=== PATIENT | female | born 2000 | race Caucasian/White ===

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

== ENCOUNTER 2020-04-28 12:36 | Emergency (ER) | payer OTHER ==
[~2020-04-28] VITALS: Ht 175.3 cm; Wt 98.9 kg
[2020-04-28 13:49] LABS: BASO % 0 % (0-3); EOS % 0 % (0-3); HEMATOCRIT 41.5 % (36.0-47.0); HEMOGLOBIN 14.9 g/dL (12.0-15.5); LYMPH # 2.3 x10^3/uL (1.0-4.8); LYMPH % 31 % (24-48); MEAN CORPUSCULAR HEMOGLOBIN 32 pg (25-35); MEAN CORPUSCULAR HGB CONC 36 g/dL (31-37); MEAN CORPUSCULAR VOLUME 88 fL (79-100); MONO # 0.5 x10^3/uL (0.0-1.1); MONO % 7 % (0-9); NEUT # 4.5 x10^3/uL (1.8-7.7); NEUT % 61 % (31-73); PLATELET COUNT 235 x10^3/uL (140-400); RED BLOOD COUNT 4.71 x10^6/uL (3.50-5.40); RED CELL DISTRIBUTION WIDTH 12.5 % (11.5-14.5); WHITE BLOOD COUNT 7.4 x10^3/uL (4.0-11.0)
[2020-04-28 13:51] LABS: BILIRUBIN,URINE NEGATIVE (NEG); CLARITY,URINE CLEAR; COLOR,URINE YELLOW; NITRITE,URINE NEGATIVE (NEG); PROTEIN,URINE NEGATIVE (NEG-TRACE); UROBILINOGEN,URINE 0.2 mg/dL (0.2 mg/dL)
[2020-04-28 13:56] LABS: BARBITURATES NEG (NEG); BENZODIAZEPINES NEG (NEG); CANNABINOIDS POS (NEG); COCAINE NEG (NEG); METHADONE NEG (NEG); OPIATES NEG (NEG); PHENCYCLIDINE NEG (NEG)
[2020-04-28 14:04] LABS: AMPHETAMINE/METHAMPHETAMINE POS (NEG); BACTERIA,URINE MANY /HPF (0-FEW)
[2020-04-28 14:05] LABS: RBC,URINE 0 /HPF (0-2); WBC,URINE OCC /HPF (0-4)
[2020-04-28 14:09] LABS: CALCIUM 9.2 mg/dL (8.5-10.1); CREATININE 0.9 mg/dL (0.6-1.0); POTASSIUM 4.3 mmol/L (3.5-5.1)
[2020-04-28 14:16] LABS: ALBUMIN 3.9 g/dL (3.4-5.0); ALBUMIN/GLOBULIN RATIO 1.3 (1.0-1.7); TOTAL BILIRUBIN 0.3 mg/dL (0.2-1.0); TOTAL PROTEIN 6.9 g/dL (6.4-8.2)
--- NOTE | 2020-04-28 15:03 | ED.ADGEN ---
Past Medical History Past Medical History: Anxiety, Bipolar Additional Past Medical Histor: PTSD Past Surgical History: Tonsillectomy, Other Additional Past Surgical Histo: [place] teeth Smoking Status: Current Every Day Smoker Additional Information: 12ppd Alcohol Use: Occasionally Drug Use: Amphetamine, Marijuana, Other Social History Narrative: report recent meth relapse General Adult EDM: Chief Complaint: SEIZURE HPI: HPI: Patient is a 19-year-old female who presents to the emergency room complaining of a possible seizure. According to witnesses patient started foaming from the mouth and then fell to the ground shaking. They state this lasted about 5 minutes. She has had 2 other episodes like this over the last 6 months. She was seen at [facility] for this but has not seen a neurologist. She had a CT head done that was normal the last time she had a seizure. She not have any head injury at this time. She did not lose control of bowel or bladder. She did not bite her tongue. She is not complaining of any kind of pain. Patient states she does not remember the episode. They state that she was sleepy afterwards but otherwise normal. Review of Systems: Review of Systems: Complete ROS is negative unless otherwise documented in HPI Allergies: Allergies: Allergies Coded Allergies Type Severity Reaction Last Updated Verified No Known Drug Allergies 04/28/20 No Physical Exam: PE: General: Awake, alert, NAD. Well Nourished, well hydrated. Cooperative HEENT: Atraumatic, EOMI, PERRL, airway patent, moist oral mucosa Neck: Supple, trachea midline Respiratory: CTA bilaterally, normal effort, no wheezing/crackles CV: RRR, no murmur, cap refill <2 GI: Soft, nondistended, nontender, no masses MSK: No obvious deformities Skin: Warm, dry, intact Neuro: A&O x3, speech NL, 5/5 strength in BUE/BLE distally and proximally, CN 2- 12 intact, cerebellar testing normal Psych: Normal affect, normal mood, not suicidal or homicidal Current Patient Data: Labs: Laboratory Tests Test 04/28/20 12:53 04/28/20 13:06 04/28/20 13:19 Urine Collection Type Unknown Urine Color Yellow Urine Clarity Clear Urine pH 6.0 (<5.0-8.0) Urine Specific [place] 1.020 (1.000-1.030) Urine Protein Negative mg/dL (NEG-TRACE) Urine Glucose (UA) Negative mg/dL (NEG) Urine Ketones (Stick) Negative mg/dL (NEG) Urine Blood Negative (NEG) Urine Nitrite Negative (NEG) Urine Bilirubin Negative (NEG) Urine Urobilinogen Dipstick 0.2 mg/dL (0.2 mg/dL) Urine Leukocyte Esterase Negative (NEG) Urine RBC 0 /HPF (0-2) Urine WBC Occ /HPF (0-4) Urine Squamous Epithelial Cells Mod /LPF Urine Bacteria Many /HPF (0-FEW) Urine Mucus Marked /LPF Urine Opiates Screen Neg (NEG) Urine Methadone Screen Neg (NEG) Urine Barbiturates Neg (NEG) Urine Phencyclidine Screen Neg (NEG) Urine Amphetamine/Methamphetamine Pos (NEG) Urine Benzodiazepines Screen Neg (NEG) Urine Cocaine Screen Neg (NEG) Urine Cannabinoids Screen Pos (NEG) Urine Ethyl Alcohol Neg (NEG) White Blood Count 7.4 x10^3/uL (4.0-11.0) Red Blood Count 4.71 x10^6/uL (3.50-5.40) Hemoglobin 14.9 g/dL (12.0-15.5) Hematocrit 41.5 % (36.0-47.0) Mean Corpuscular Volume 88 fL (79-100) Mean Corpuscular Hemoglobin 32 pg (25-35) Mean Corpuscular Hemoglobin Concent 36 g/dL (31-37) Red Cell Distribution Width 12.5 % (11.5-14.5) Platelet Count 235 x10^3/uL (140-400) Neutrophils (%) (Auto) 61 % (31-73) Lymphocytes (%) (Auto) 31 % (24-48) Monocytes (%) (Auto) 7 % (0-9) Eosinophils (%) (Auto) 0 % (0-3) Basophils (%) (Auto) 0 % (0-3) Neutrophils # (Auto) 4.5 x10^3/uL (1.8-7.7) Lymphocytes # (Auto) 2.3 x10^3/uL (1.0-4.8) Monocytes # (Auto) 0.5 x10^3/uL (0.0-1.1) Eosinophils # (Auto) 0.0 x10^3/uL (0.0-0.7) Basophils # (Auto) 0.0 x10^3/uL (0.0-0.2) Sodium Level 140 mmol/L (136-145) Potassium Level 4.3 mmol/L (3.5-5.1) Chloride Level 104 mmol/L (98-107) Carbon Dioxide Level 24 mmol/L (21-32) Anion Gap 12 (6-14) Blood Urea Nitrogen 8 mg/dL (7-20) Creatinine 0.9 mg/dL (0.6-1.0) Estimated GFR (Cockcroft-Gault) 79.0 BUN/Creatinine Ratio 9 (6-20) Glucose Level 89 mg/dL (70-99) Calcium Level 9.2 mg/dL (8.5-10.1) Total Bilirubin 0.3 mg/dL (0.2-1.0) Aspartate Amino Transferase (AST) 17 U/L (15-37) Alanine Aminotransferase (ALT) 28 U/L (14-59) Alkaline Phosphatase 65 U/L (46-116) Total Protein 6.9 g/dL (6.4-8.2) Albumin 3.9 g/dL (3.4-5.0) Albumin/Globulin Ratio 1.3 (1.0-1.7) POC Urine HCG, Qualitative Hcg negative (Negative) Laboratory Tests 04/28/20 13:06 Laboratory Tests 04/28/20 13:06 Vital Signs: Vital Signs Date Time Temp Pulse Resp B/P (MAP) Pulse Ox O2 Delivery O2 Flow Rate FiO2 04/28/20 15:28 98.3 72 23 98 98.3 04/28/20 12:38 108/66 (80) Room Air EKG: EKG: [] Heart Score: Risk Factors: Risk Factors: DM, Current or recent (<one month) smoker, HTN, HLP, family history of CAD, obesity. Risk Scores: Score 0 - 3: 2.5% MACE over next 6 weeks - Discharge Home Score 4 - 6: 20.3% MACE over next 6 weeks - Admit for Clinical Observation Score 7 - 10: 72.7% MACE over next 6 weeks - Early Invasive Strategies Radiology/Procedures: Radiology/Procedures: [] Course & Med Decision Making: Course & Med Decision Making Pertinent Labs and Imaging studies reviewed. (See chart for details) Patient is 19-year-old female who presents to the emergency room after having a possible seizure. Patient has had 2 other episodes like this and has not been started on medications. Of note she was supposed to be in court today and they are asking for a note to excuse her from court due to her seizure. Patient does need to see a neurologist. Did discuss the case with the neurologist that is covered by patient's insurance at [facility] and they recommend starting her on seizure medications and they will see her in clinic to evaluate further. Lab work does not show any secondary causes of seizures. Patient's test results and vitals while in the ED were fully reviewed and discussed with the patient. Patient is stable and at this time does not need admission to the hospital. We have discussed strict return precautions and the importance of following up with their Primary Care Physician. Patient stated understanding and was given an opportunity to ask any questions. Patient is in agreement with plan. Jeffrey Disclaimer: Jeffrey Disclaimer: This electronic medical record was generated, in whole or in part, using a voice recognition dictation system. Departure Departure Impression: Primary Impression: Seizure Disposition: 01 DC HOME SELF CARE/HOMELESS Condition: STABLE Referrals: NO PCP (PCP) Patient Instructions: Seizure, Adult Scripts Levetiracetam (KEPPRA) 500 Mg Tablet 1 TAB PO BID for 30 Days, #60 TAB 2 Refills Prov: DEAY GILL MD 04/28/20 DEYA GILL MD Apr 28, 2020 15:03
[2020-04-28] MEDS ORDERED: LEVE500T56 PO (15:21)
[2020-04-28 15:28] VITALS: BP 106/58
== END 2020-04-28 15:35 | disposition home or self-care (01) ==
LOC: ER 12:36
DX: R56.9 Unspecified convulsions (principal); F31.9 Bipolar disorder, unspecified; F41.9 Anxiety disorder, unspecified; F43.10 Post-traumatic stress disorder, unspecified; F17.200 Nicotine dependence, unspecified, uncomplicated
CPT/HCPCS: 36415; 80053; 80307; 81001; 81025; 85025; 99285-25

== ENCOUNTER 2020-12-20 11:42 | Emergency (ER) | payer OTHER ==
[~2020-12-20 11:42] MED LIST changes: +LEVE500T56 PO
== END 2020-12-20 13:23 | disposition left against medical advice (07) ==
LOC: ER 11:42
DX: Z20.822 Contact with and (suspected) exposure to COVID-19 (principal); Z53.21 Procedure and treatment not carried out due to patient leaving prior to being seen by health care provider

== ENCOUNTER 2020-12-28 02:14 | Observation (INO) | payer OTHER ==
[~2020-12-28] VITALS: Ht 175.3 cm; Wt 69.1 kg
--- NOTE | 2020-12-28 02:52 | PHYS DOC ---
Past Medical History Past Medical History: Anxiety, Bipolar Additional Past Medical Histor: PTSD Past Surgical History: Tonsillectomy, Other Additional Past Surgical Histo: [place] teeth Smoking Status: Current Every Day Smoker Alcohol Use: Occasionally Drug Use: Amphetamine, Marijuana, Other General Adult EDM: Chief Complaint: NECK PAIN HPI: HPI: Patient is a 20 year old female presents with the chief complaint of left sided neck pain and lump. Patient unable to provided much history. She staates she was seen at [facility]-- on the or . She states she was told she needs to have surgery. Patient states she was scared so she left. She states she was Rx Antibiotics but lump has not improved. Medical records obtained from [place]. Patient was admitted to the hospital on 12/21. She was started on Unasyn. Patient had fine-needle aspiration was performed and purulent fluid was aspirated. Culture grew strep pyogenes and many staph specimens. Pathology was negative for malignancy. ENT did not plan and I and D and recommend oral antibiotics. Patient subsequently left [facility] on . CT imaging at [place] shows haziness throughout the fat of the left lower neck with several round peripheral enhancing structures deep to the sternocleidomastoid largest measuring 2.0 x 1.5 cm. Review of Systems: Review of Systems: Constitutional: Denies fever or chills. [] Eyes: Denies change in visual acuity. [] HENT: Denies nasal congestion or sore throat. [] Respiratory: Denies cough or shortness of breath. [] Cardiovascular: Denies chest pain or edema. [] GI: Denies abdominal pain, nausea, vomiting, bloody stools or diarrhea. [] : Denies dysuria. [] Musculoskeletal: Denies back pain or joint pain. [Positive neck pain] Integument: Denies rash. [Positive abscess] Neurologic: Denies headache, focal weakness or sensory changes. [] Endocrine: Denies polyuria or polydipsia. [] Lymphatic: Denies swollen glands. [] Psychiatric: Denies depression or anxiety. [] Heart Score: C/O Chest Pain: N/A Risk Factors: Risk Factors: DM, Current or recent (<one month) smoker, HTN, HLP, family history of CAD, obesity. Risk Scores: Score 0 - 3: 2.5% MACE over next 6 weeks - Discharge Home Score 4 - 6: 20.3% MACE over next 6 weeks - Admit for Clinical Observation Score 7 - 10: 72.7% MACE over next 6 weeks - Early Invasive Strategies Allergies: Allergies: Allergies Coded Allergies Type Severity Reaction Last Updated Verified No Known Drug Allergies 04/28/20 No Physical Exam: PE: Constitutional: Well developed, well nourished, no acute distress, non-toxic appearance. [] HENT: Normocephalic, atraumatic, bilateral external ears normal, oropharynx moist, no oral exudates, nose normal. [] Eyes: PERRLA, EOMI, conjunctiva normal, no discharge. [] Neck: Normal range of motion, no tenderness, supple, no stridor. [Palpable mass left sternocleidomastoid] Cardiovascular:Heart rate regular rhythm, no murmur [] Lungs & Thorax: Bilateral breath sounds clear to auscultation [] Abdomen: Bowel sounds normal, soft, no tenderness, no masses, no pulsatile masses. [] Skin: Warm, dry, no erythema, no rash. [] Back: No tenderness, no CVA tenderness. [] Extremities: No tenderness, no cyanosis, no clubbing, ROM intact, no edema. [] Neurologic: Alert and oriented X 3, normal motor function, normal sensory function, no focal deficits noted. [] Psychologic: Affect normal, judgement normal, mood normal. [] EKG: EKG: [] Radiology/Procedures: Radiology/Procedures: [] Course & Med Decision Making: Course & Med Decision Making Pertinent Labs and Imaging studies reviewed. (See chart for details) [] Medical records obtained from [facility]. Patient with abscess left sternocleidomastoid. Patient was initially on Unasyn but left the hospital AMA. She did receive a prescription of Augmentin which patient states she has been taking. Patient states lump is still present not getting any better. Will admit the patient for IV antibiotics. Started on unasyn. Jeffrey Disclaimer: Jeffrey Disclaimer: This electronic medical record was generated, in whole or in part, using a voice recognition dictation system. Departure Departure Impression: Primary Impression: Neck pain Additional Impression: Abscess Disposition: ADMITTED INPATIENT Admitting Physician: KATIA Referrals: NO PCP (PCP) ANDRIY ROMERO DO Dec 28, 2020 02:51
[2020-12-28] MEDS ORDERED: AMPICILLIN/SULBACTAM 3 GM in IV NORMAL SALINE 100ML 100 ML IV ONE (05:45)
[2020-12-28] MEDS ORDERED: ACETAMINOPHEN 325 MG TABLET. PO PRN ×2 (05:45→10:00)
[2020-12-28 05:46] LABS: BASO % 0 % (0-3); EOS # 0.1 x10^3/uL (0.0-0.7); EOS % 1 % (0-3); HEMATOCRIT 38.7 % (36.0-47.0); HEMOGLOBIN 13.3 g/dL (12.0-15.5); LYMPH # 4.9 x10^3/uL (1.0-4.8); LYMPH % 41 % (24-48); MEAN CORPUSCULAR HEMOGLOBIN 28 pg (25-35); MEAN CORPUSCULAR HGB CONC 34 g/dL (31-37); MEAN CORPUSCULAR VOLUME 81 fL (79-100); MONO # 0.7 x10^3/uL (0.0-1.1); MONO % 6 % (0-9); NEUT # 6.3 x10^3/uL (1.8-7.7); NEUT % 52 % (31-73); PLATELET COUNT 427 x10^3/uL (140-400); RED BLOOD COUNT 4.78 x10^6/uL (3.50-5.40); RED CELL DISTRIBUTION WIDTH 14.7 % (11.5-14.5); WHITE BLOOD COUNT 12.2 x10^3/uL (4.0-11.0)
[2020-12-28 05:52] LABS: CALCIUM 9.1 mg/dL (8.5-10.1); CREATININE 0.9 mg/dL (0.6-1.0); GFR 78.3
[2020-12-28 05:57] LABS: ALBUMIN 2.9 g/dL (3.4-5.0); ALBUMIN/GLOBULIN RATIO 0.6 (1.0-1.7); TOTAL BILIRUBIN 0.2 mg/dL (0.2-1.0); TOTAL PROTEIN 7.9 g/dL (6.4-8.2)
[2020-12-28] MEDS ORDERED: IOHEXOL 300 MG/ML 100ML VIAL. IV ONE (06:00)
[2020-12-28] MEDS ORDERED: CONTRAST GIVEN. MC PRN (06:00)
[2020-12-28] MEDS ORDERED: ELECTROLYTE (NON-ICU) PROTOCOL. MC PRN (10:00)
[2020-12-28] MEDS ORDERED: CALCIUM CARBONATE 500 MG TAB.CHEW PO PRN (10:00)
[2020-12-28] MEDS ORDERED: ONDANSETRON PF 4 MG/2 ML VIAL. IVP PRN (10:00)
[2020-12-28] MEDS ORDERED: ZOLPIDEM 5 MG TABLET. PO PRN (10:00)
[2020-12-28] MEDS: levETIRAcetam 500 MG TABLET PO SCH ×2 (10:47→20:10)
[2020-12-28] MEDS: SENNOSIDES/DOCUSATE 8.6/50MG TABLET. PO SCH ×2 (10:47→20:11)
[2020-12-28] MEDS: QUEtiapine 100 MG TABLET. PO SCH (10:47)
--- NOTE | 2020-12-28 11:15 | PDOC ---
Infectious Disease Note Vital Signs: Vital Signs Vital Signs Date Time Temp Pulse Resp B/P (MAP) Pulse Ox O2 Delivery O2 Flow Rate FiO2 12/28/20 07:07 98 112/65 (81) 100 Room Air 12/28/20 06:37 20 12/28/20 02:30 98.6 98.6 Medications: Inpatient Meds: Medications reviewed. Labs: Lab Laboratory Tests Test 12/28/20 02:45 12/28/20 05:35 Bedside Urine HCG, Qualitative Hcg negative (Negative) White Blood Count 12.2 x10^3/uL (4.0-11.0) Red Blood Count 4.78 x10^6/uL (3.50-5.40) Hemoglobin 13.3 g/dL (12.0-15.5) Hematocrit 38.7 % (36.0-47.0) Mean Corpuscular Volume 81 fL (79-100) Mean Corpuscular Hemoglobin 28 pg (25-35) Mean Corpuscular Hemoglobin Concent 34 g/dL (31-37) Red Cell Distribution Width 14.7 % (11.5-14.5) Platelet Count 427 x10^3/uL (140-400) Neutrophils (%) (Auto) 52 % (31-73) Lymphocytes (%) (Auto) 41 % (24-48) Monocytes (%) (Auto) 6 % (0-9) Eosinophils (%) (Auto) 1 % (0-3) Basophils (%) (Auto) 0 % (0-3) Neutrophils # (Auto) 6.3 x10^3/uL (1.8-7.7) Lymphocytes # (Auto) 4.9 x10^3/uL (1.0-4.8) Monocytes # (Auto) 0.7 x10^3/uL (0.0-1.1) Eosinophils # (Auto) 0.1 x10^3/uL (0.0-0.7) Basophils # (Auto) 0.0 x10^3/uL (0.0-0.2) Sodium Level 137 mmol/L (136-145) Potassium Level 4.0 mmol/L (3.5-5.1) Chloride Level 102 mmol/L (98-107) Carbon Dioxide Level 30 mmol/L (21-32) Anion Gap 5 (6-14) Blood Urea Nitrogen 11 mg/dL (7-20) Creatinine 0.9 mg/dL (0.6-1.0) Estimated GFR (Cockcroft-Gault) 78.3 BUN/Creatinine Ratio 12 (6-20) Glucose Level 81 mg/dL (70-99) Calcium Level 9.1 mg/dL (8.5-10.1) Total Bilirubin 0.2 mg/dL (0.2-1.0) Aspartate Amino Transf (AST/SGOT) 16 U/L (15-37) Alanine Aminotransferase (ALT/SGPT) 43 U/L (14-59) Alkaline Phosphatase 87 U/L (46-116) Total Protein 7.9 g/dL (6.4-8.2) Albumin 2.9 g/dL (3.4-5.0) Albumin/Globulin Ratio 0.6 (1.0-1.7) Objective: Assessment: pt seen and examined in ED ID CONSULT DICTATED THANK YOU [id number] Plan: Plan of Care thank you NEGRO DAVIS MD Dec 28, 2020 11:15
--- NOTE | 2020-12-28 12:18 | PDOC1 ---
History and Physical Date of Service: DOS: DATE: 12/28/20 TIME: 12:07 Chief Complaint: Problems: (1) Neck pain (2) Abscess Chief Complain: neck pain History of Present Illness: HPI: Patient is a 20-year-old white female presented the emergency room overnight due to left-sided neck pain and a bump. Patient reports about 2 weeks ago she noticed she was developing a lump on the back of her neck. Initially she did not think much of it but when it continued to grow she went to an outside facility. This was about a week ago she was told at that time she was started on IV antibiotics (Unasyn) and the lump was aspirated with very purulent material. She was then recommended for surgery but she was made very nervous by this and left [facility]. She was given a prescription for oral antibiotics, I believe Augmentin, which she has been taking. Despite this lump continued to worsen and she presented back to the emergency room here. Emergency room labs remarkable for leukocytosis. CT neck read still pending. When I saw her she was overall pretty lethargic and in obvious amount of pain. She was denying headache, dizziness, vision changes, shortness breath, chest pain abdominal pain. Past Medical/Surgical History: PMH/PSH: Anxiety, bipolar, Allergies: Allergies: Coded Allergies: No Known Drug Allergies (Unverified , 04/28/20) Family History: Family History: Noncontributory Social History: Social History: Daily smoker. Occasional alcohol use. Uses amphetamine and marijuana recreationally Denies any history of IV drug use including injecting into her neck Current Medications: Current Medications Current Medications Ampicillin Sodium/ Sulbactam Sodium 3 gm/Sodium Chloride 100 ml @ 200 mls/hr 1X ONCE IV Last administered on 12/28/20at 05:59; Start 12/28/20 at 05:45; Stop 12/28/20 at 06:14; Status DC Acetaminophen (Tylenol) 650 mg PRN Q4HRS PRN PO FEVER > 100.3'F Last administered on 12/28/20at 05:55; Start 12/28/20 at 05:45; Stop 12/28/20 at 10:13; Status DC Iohexol (Omnipaque 300 Mg/ml) 70 ml 1X ONCE IV Last administered on 12/28/20at 06:06; Start 12/28/20 at 06:00; Stop 12/28/20 at 06:01; Status DC Info (CONTRAST GIVEN -- Rx MONITORING) 1 each PRN DAILY PRN MC SEE COMMENTS; S tart 12/28/20 at 06:00; Stop 12/30/20 at 05:59 Levetiracetam (Keppra) 500 mg BID PO Last administered on 12/28/20at 10:47; Start 12/28/20 at 10:00 Quetiapine Fumarate (SEROquel) 100 mg DAILY PO Last administered on 12/28/20at 10:47; Start 12/28/20 at 11:00 Ondansetron HCl (Zofran) 4 mg PRN Q6HRS PRN IVP NAUSEA/VOMITING; Start 12/28/20 at 10:00 Calcium Carbonate/ Glycine (Tums) 500 mg PRN Q3HRS PRN PO UPSET STOMACH; Start 12/28/20 at 10:00 Zolpidem Tartrate (Ambien) 5 mg PRN QHS PRN PO INSOMNIA, MAY REPEAT IN 1HR; Start 12/28/20 at 10:00 Info (Non-Icu Electrolyte Protocol) 1 ea PRN DAILY PRN MC SEE COMMENTS; Start 12/28/20 at 10:00 Oxycodone/ Acetaminophen (Percocet 5/325) 2 tab PRN Q4HRS PRN PO MODERATE PAIN, SEVERE PAIN; Start 12/28/20 at 10:00 Acetaminophen (Tylenol) 650 mg PRN Q6HRS PRN PO Headaches, Temp > 101.5F; Start 12/28/20 at 10:00 Senna/Docusate Sodium (Senna Plus) 1 tab BID PO Last administered on 12/28/20at 10:47; Start 12/28/20 at 11:00 Heparin Sodium (Porcine) (Heparin Sodium) 5,000 unit Q8HRS SQ ; Start 12/28/20 at 14:00 Ampicillin Sodium/ Sulbactam Sodium 3 gm/Sodium Chloride 100 ml @ 200 mls/hr Q6HRS IV ; Start 12/28/20 at 12:00 Active Scripts Active Keppra (Levetiracetam) 500 Mg Tablet 1 Tab PO BID 30 Days Reported Seroquel (Quetiapine Fumarate) 100 Mg Tablet 100 Mg PO ROS: Review of Systems Review of System Negative unless noted in HPI Physical Exam: Vital Signs: Vital Signs Date Time Temp Pulse Resp B/P (MAP) Pulse Ox O2 Delivery O2 Flow Rate FiO2 12/28/20 11:07 88 101/65 (77) 100 Room Air 12/28/20 06:37 20 12/28/20 02:30 98.6 98.6 Physcial Exam: GEN: No apparent distress. Alert and oriented HEENT: Normal cephalic, atraumatic, external auditory canals are patent EYES: Extraocular muscles are intact, pupil are equally round and reactive to light and accommodation MUSCULOSKELETAL: Well developed , well nourished, good range of motion ENDOCRINE: No thyromegaly was palpated LYMPHATICS: No cervical chain or axillary nodes were noted HEMATOPOIETIC: No bruising NECK: Palpable mobile mass that is tender and around the left SCM LUNGS: Clear to auscultation in all lung ribera without rhonchi or wheezing HEART: RRR, S1, S2 present. Peripheral pulses intact, no obvious murmurs noted ABDOMEN: Soft, nontender. Positive bowel sounds, no organomegaly, normal bowel sounds EXTREMITIES: Without clubbing, cyanosis, or edema. Pedal pulses intact. Negative Homans sign NEUROLOGIC: Normal speech and tone. A&O x 3, moves all extremities, no obvious focal deficits PSYCHIATRIC: Normal affect, normal mood. Stable SKIN: No ulcerations or rashes, good skin turgor, no jaundice VASCULAR: Good capillary refill, neurovascular bundle appears to be intact Labs: Labs: Laboratory Tests Test 12/28/20 02:45 12/28/20 05:35 Bedside Urine HCG, Qualitative Hcg negative (Negative) White Blood Count 12.2 x10^3/uL (4.0-11.0) Red Blood Count 4.78 x10^6/uL (3.50-5.40) Hemoglobin 13.3 g/dL (12.0-15.5) Hematocrit 38.7 % (36.0-47.0) Mean Corpuscular Volume 81 fL (79-100) Mean Corpuscular Hemoglobin 28 pg (25-35) Mean Corpuscular Hemoglobin Concent 34 g/dL (31-37) Red Cell Distribution Width 14.7 % (11.5-14.5) Platelet Count 427 x10^3/uL (140-400) Neutrophils (%) (Auto) 52 % (31-73) Lymphocytes (%) (Auto) 41 % (24-48) Monocytes (%) (Auto) 6 % (0-9) Eosinophils (%) (Auto) 1 % (0-3) Basophils (%) (Auto) 0 % (0-3) Neutrophils # (Auto) 6.3 x10^3/uL (1.8-7.7) Lymphocytes # (Auto) 4.9 x10^3/uL (1.0-4.8) Monocytes # (Auto) 0.7 x10^3/uL (0.0-1.1) Eosinophils # (Auto) 0.1 x10^3/uL (0.0-0.7) Basophils # (Auto) 0.0 x10^3/uL (0.0-0.2) Sodium Level 137 mmol/L (136-145) Potassium Level 4.0 mmol/L (3.5-5.1) Chloride Level 102 mmol/L (98-107) Carbon Dioxide Level 30 mmol/L (21-32) Anion Gap 5 (6-14) Blood Urea Nitrogen 11 mg/dL (7-20) Creatinine 0.9 mg/dL (0.6-1.0) Estimated GFR (Cockcroft-Gault) 78.3 BUN/Creatinine Ratio 12 (6-20) Glucose Level 81 mg/dL (70-99) Calcium Level 9.1 mg/dL (8.5-10.1) Total Bilirubin 0.2 mg/dL (0.2-1.0) Aspartate Amino Transf (AST/SGOT) 16 U/L (15-37) Alanine Aminotransferase (ALT/SGPT) 43 U/L (14-59) Alkaline Phosphatase 87 U/L (46-116) Total Protein 7.9 g/dL (6.4-8.2) Albumin 2.9 g/dL (3.4-5.0) Albumin/Globulin Ratio 0.6 (1.0-1.7) Laboratory Tests Test 12/28/20 02:45 12/28/20 05:35 Bedside Urine HCG, Qualitative Hcg negative (Negative) White Blood Count 12.2 x10^3/uL (4.0-11.0) Red Blood Count 4.78 x10^6/uL (3.50-5.40) Hemoglobin 13.3 g/dL (12.0-15.5) Hematocrit 38.7 % (36.0-47.0) Mean Corpuscular Volume 81 fL (79-100) Mean Corpuscular Hemoglobin 28 pg (25-35) Mean Corpuscular Hemoglobin Concent 34 g/dL (31-37) Red Cell Distribution Width 14.7 % (11.5-14.5) Platelet Count 427 x10^3/uL (140-400) Neutrophils (%) (Auto) 52 % (31-73) Lymphocytes (%) (Auto) 41 % (24-48) Monocytes (%) (Auto) 6 % (0-9) Eosinophils (%) (Auto) 1 % (0-3) Basophils (%) (Auto) 0 % (0-3) Neutrophils # (Auto) 6.3 x10^3/uL (1.8-7.7) Lymphocytes # (Auto) 4.9 x10^3/uL (1.0-4.8) Monocytes # (Auto) 0.7 x10^3/uL (0.0-1.1) Eosinophils # (Auto) 0.1 x10^3/uL (0.0-0.7) Basophils # (Auto) 0.0 x10^3/uL (0.0-0.2) Sodium Level 137 mmol/L (136-145) Potassium Level 4.0 mmol/L (3.5-5.1) Chloride Level 102 mmol/L (98-107) Carbon Dioxide Level 30 mmol/L (21-32) Anion Gap 5 (6-14) Blood Urea Nitrogen 11 mg/dL (7-20) Creatinine 0.9 mg/dL (0.6-1.0) Estimated GFR (Cockcroft-Gault) 78.3 BUN/Creatinine Ratio 12 (6-20) Glucose Level 81 mg/dL (70-99) Calcium Level 9.1 mg/dL (8.5-10.1) Total Bilirubin 0.2 mg/dL (0.2-1.0) Aspartate Amino Transf (AST/SGOT) 16 U/L (15-37) Alanine Aminotransferase (ALT/SGPT) 43 U/L (14-59) Alkaline Phosphatase 87 U/L (46-116) Total Protein 7.9 g/dL (6.4-8.2) Albumin 2.9 g/dL (3.4-5.0) Albumin/Globulin Ratio 0.6 (1.0-1.7) Assessment/Plan Assessment/Plan Neck abscess, anxiety, bipolar, seizure disorder -Patient presenting with a 2-week history of worsening neck mass -Initially seen at outside hospital where mass was drained and patient treated with antibiotic -Left that hospital AMA has been taking p.o. Augmentin but neck mass worsening -In emergency room patient found to have leukocytosis. She was started on Unasyn. Will consult infectious disease -CT soft neck read pending. Will consult surgery to see if intervention is required -Home meds resumed as indicated -Pain control -DVT prophylaxis -Regular diet Justifications for Admission Other Justification RAVEN IBARRA MD Dec 28, 2020 12:17
[2020-12-28] MEDS: AMPICILLIN/SULBACTAM 3 GM in IV NORMAL SALINE 100ML 100 ML IV SCH ×3 (12:34→23:42)
--- NOTE | 2020-12-28 12:54 | PDOC2 ---
CONSULT Date of Consult Date of Consult DATE: 12/28/20 TIME: 12:44 Reason for Consult Reason for Consult: neck mass Referring Physician Referring Physician: Dr Garrison Identification/Chief Complaint Chief Complaint neck swelling Source Source: Chart review, Patient History of Present Illness Reason for Visit: [place]. Patient was admitted to the hospital on 12/21. She was started on Unasyn. Patient had fine-needle aspiration was performed and purulent fluid was aspirated. Culture grew strep pyogenes and many staph specimens. Pathology was negative for malignancy. ENT did not plan and I and D and recommend oral antibiotics. Patient subsequently left AMA on . Reports was nervous when they talked about surgery and left AMA Past Medical History Psych: Anxiety, Bipolar Past Surgical History Past Surgical History: No pertinent history Family History Family History: Family History Unknown Social History 1 pack per day ALCOHOL: occassional Drugs: Marijuana, Crystal meth Lives: with Family Current Problem List Problem List Problems Medical Problems: (1) Abscess Status: Acute (2) Neck pain Status: Acute Current Medications Current Medications Current Medications Ampicillin Sodium/ Sulbactam Sodium 3 gm/Sodium Chloride 100 ml @ 200 mls/hr 1X ONCE IV Last administered on 12/28/20at 05:59; Start 12/28/20 at 05:45; Stop 12/28/20 at 06:14; Status DC Acetaminophen (Tylenol) 650 mg PRN Q4HRS PRN PO FEVER > 100.3'F Last admini stered on 12/28/20at 05:55; Start 12/28/20 at 05:45; Stop 12/28/20 at 10:13; Status DC Iohexol (Omnipaque 300 Mg/ml) 70 ml 1X ONCE IV Last administered on 12/28/20at 06:06; Start 12/28/20 at 06:00; Stop 12/28/20 at 06:01; Status DC Info (CONTRAST GIVEN -- Rx MONITORING) 1 each PRN DAILY PRN MC SEE COMMENTS; Start 12/28/20 at 06:00; Stop 12/30/20 at 05:59 Levetiracetam (Keppra) 500 mg BID PO Last administered on 12/28/20at 10:47; Start 12/28/20 at 10:00 Quetiapine Fumarate (SEROquel) 100 mg DAILY PO Last administered on 12/28/20at 10:47; Start 12/28/20 at 11:00 Ondansetron HCl (Zofran) 4 mg PRN Q6HRS PRN IVP NAUSEA/VOMITING; Start 12/28/20 at 10:00 Calcium Carbonate/ Glycine (Tums) 500 mg PRN Q3HRS PRN PO UPSET STOMACH; Start 12/28/20 at 10:00 Zolpidem Tartrate (Ambien) 5 mg PRN QHS PRN PO INSOMNIA, MAY REPEAT IN 1HR; Start 12/28/20 at 10:00 Info (Non-Icu Electrolyte Protocol) 1 ea PRN DAILY PRN MC SEE COMMENTS; Start 12/28/20 at 10:00 Oxycodone/ Acetaminophen (Percocet 5/325) 2 tab PRN Q4HRS PRN PO MODERATE PAIN, SEVERE PAIN; Start 12/28/20 at 10:00 Acetaminophen (Tylenol) 650 mg PRN Q6HRS PRN PO Headaches, Temp > 101.5F; St art 12/28/20 at 10:00 Senna/Docusate Sodium (Senna Plus) 1 tab BID PO Last administered on 12/28/20at 10:47; Start 12/28/20 at 11:00 Heparin Sodium (Porcine) (Heparin Sodium) 5,000 unit Q8HRS SQ ; Start 12/28/20 at 14:00 Ampicillin Sodium/ Sulbactam Sodium 3 gm/Sodium Chloride 100 ml @ 200 mls/hr Q6HRS IV Last administered on 12/28/20at 12:34; Start 12/28/20 at 12:00 Active Scripts Active Keppra (Levetiracetam) 500 Mg Tablet 1 Tab PO BID 30 Days Reported Seroquel (Quetiapine Fumarate) 100 Mg Tablet 100 Mg PO Allergies Allergies: Coded Allergies: No Known Drug Allergies (Unverified , 04/28/20) ROS General: No: Chills, Appetite (loss) PSYCHOLOGICAL ROS: YES: Anxiety; No: Depression Eyes: No Blurry vision, No Double vision HEENT: YES: Other (reports trouble swallowing ); No: Heacaches Hematological and Lymphatic: No: Bleeding Problems, Blood Clots Respiratory: No: Cough, Shortness of breath Cardiovascular: No Chest Pain, No Palpitations Gastrointestinal: No Nausea, No Vomiting, No Abdominal Pain Genitourinary: No Dysuria, No Hematuria Musculoskeletal: Yes Muscle Pain; No Joint Pain Neurological: No Impaired Coord/balance, No Numbness/Tingling Skin: No Pruritus, No Rash Physical Exam General: Alert, Oriented X3, Cooperative HEENT: Other (left neck some swelling, tender near sternocleidomastoid area) Lungs: Clear to auscultation, Normal air movement Heart: Regular rate, Normal S1, Normal S2 Abdomen: Soft, No tenderness Extremities: No clubbing, No cyanosis Skin: No rashes, No breakdown Neuro: Normal gait, Normal speech Psych/Mental Status: Mental status NL, Mood NL MUSCULOSKELETAL: No deformity, No swelling Vitals VITALS Vital Signs Date Time Temp Pulse Resp B/P (MAP) Pulse Ox O2 Delivery O2 Flow Rate FiO2 12/28/20 11:07 88 101/65 (77) 100 Room Air 12/28/20 06:37 20 12/28/20 02:30 98.6 98.6 Labs Labs Laboratory Tests Test 12/28/20 02:45 12/28/20 05:35 Bedside Urine HCG, Qualitative Hcg negative (Negative) White Blood Count 12.2 x10^3/uL (4.0-11.0) Red Blood Count 4.78 x10^6/uL (3.50-5.40) Hemoglobin 13.3 g/dL (12.0-15.5) Hematocrit 38.7 % (36.0-47.0) Mean Corpuscular Volume 81 fL (79-100) Mean Corpuscular Hemoglobin 28 pg (25-35) Mean Corpuscular Hemoglobin Concent 34 g/dL (31-37) Red Cell Distribution Width 14.7 % (11.5-14.5) Platelet Count 427 x10^3/uL (140-400) Neutrophils (%) (Auto) 52 % (31-73) Lymphocytes (%) (Auto) 41 % (24-48) Monocytes (%) (Auto) 6 % (0-9) Eosinophils (%) (Auto) 1 % (0-3) Basophils (%) (Auto) 0 % (0-3) Neutrophils # (Auto) 6.3 x10^3/uL (1.8-7.7) Lymphocytes # (Auto) 4.9 x10^3/uL (1.0-4.8) Monocytes # (Auto) 0.7 x10^3/uL (0.0-1.1) Eosinophils # (Auto) 0.1 x10^3/uL (0.0-0.7) Basophils # (Auto) 0.0 x10^3/uL (0.0-0.2) Sodium Level 137 mmol/L (136-145) Potassium Level 4.0 mmol/L (3.5-5.1) Chloride Level 102 mmol/L (98-107) Carbon Dioxide Level 30 mmol/L (21-32) Anion Gap 5 (6-14) Blood Urea Nitrogen 11 mg/dL (7-20) Creatinine 0.9 mg/dL (0.6-1.0) Estimated GFR (Cockcroft-Gault) 78.3 BUN/Creatinine Ratio 12 (6-20) Glucose Level 81 mg/dL (70-99) Calcium Level 9.1 mg/dL (8.5-10.1) Total Bilirubin 0.2 mg/dL (0.2-1.0) Aspartate Amino Transf (AST/SGOT) 16 U/L (15-37) Alanine Aminotransferase (ALT/SGPT) 43 U/L (14-59) Alkaline Phosphatase 87 U/L (46-116) Total Protein 7.9 g/dL (6.4-8.2) Albumin 2.9 g/dL (3.4-5.0) Albumin/Globulin Ratio 0.6 (1.0-1.7) Laboratory Tests Test 12/28/20 02:45 12/28/20 05:35 Bedside Urine HCG, Qualitative Hcg negative (Negative) White Blood Count 12.2 x10^3/uL (4.0-11.0) Red Blood Count 4.78 x10^6/uL (3.50-5.40) Hemoglobin 13.3 g/dL (12.0-15.5) Hematocrit 38.7 % (36.0-47.0) Mean Corpuscular Volume 81 fL (79-100) Mean Corpuscular Hemoglobin 28 pg (25-35) Mean Corpuscular Hemoglobin Concent 34 g/dL (31-37) Red Cell Distribution Width 14.7 % (11.5-14.5) Platelet Count 427 x10^3/uL (140-400) Neutrophils (%) (Auto) 52 % (31-73) Lymphocytes (%) (Auto) 41 % (24-48) Monocytes (%) (Auto) 6 % (0-9) Eosinophils (%) (Auto) 1 % (0-3) Basophils (%) (Auto) 0 % (0-3) Neutrophils # (Auto) 6.3 x10^3/uL (1.8-7.7) Lymphocytes # (Auto) 4.9 x10^3/uL (1.0-4.8) Monocytes # (Auto) 0.7 x10^3/uL (0.0-1.1) Eosinophils # (Auto) 0.1 x10^3/uL (0.0-0.7) Basophils # (Auto) 0.0 x10^3/uL (0.0-0.2) Sodium Level 137 mmol/L (136-145) Potassium Level 4.0 mmol/L (3.5-5.1) Chloride Level 102 mmol/L (98-107) Carbon Dioxide Level 30 mmol/L (21-32) Anion Gap 5 (6-14) Blood Urea Nitrogen 11 mg/dL (7-20) Creatinine 0.9 mg/dL (0.6-1.0) Estimated GFR (Cockcroft-Gault) 78.3 BUN/Creatinine Ratio 12 (6-20) Glucose Level 81 mg/dL (70-99) Calcium Level 9.1 mg/dL (8.5-10.1) Total Bilirubin 0.2 mg/dL (0.2-1.0) Aspartate Amino Transf (AST/SGOT) 16 U/L (15-37) Alanine Aminotransferase (ALT/SGPT) 43 U/L (14-59) Alkaline Phosphatase 87 U/L (46-116) Total Protein 7.9 g/dL (6.4-8.2) Albumin 2.9 g/dL (3.4-5.0) Albumin/Globulin Ratio 0.6 (1.0-1.7) Assessment/Plan Assessment/Plan will await CT results, any surgical recs pending findings LORA URIAS BOTTLER Dec 28, 2020 12:54
--- NOTE | 2020-12-28 13:59 | RAD ---
EXAM: CT NECK SOFT TISSUES WITH CONTRAST. HISTORY: Swelling, abscess. TECHNIQUE: Computed tomography of the neck soft tissues was performed after the intravenous administr ation of iodinated contrast. One or more of the following individualized dose reduction techniques we re utilized for this examination: 1. Automated exposure control. 2. Adjustment of the mA and/or kV according to patient size. 3. Use of iterative reconstruction technique. COMPARISON: None. FINDINGS: Images of the lung apices reveal no acute abnormality. Bone windows reveal no suspicious le sions. Moderate mucosal thickening and some fluid are partially visualized in the maxillary sinuses. The parotid glands and submandibular glands are unremarkable. The thyroid gland reveals no focal lesi ons. A centrally poorly enhancing mass in the left supraclavicular territory measures 3.4 x 3.3 cm and lik myles reflects a necrotic lymph node. There is surrounding inflammatory change. No additional enlarged lymph nodes are identified. There are no clear laryngeal or pharyngeal lesions. IMPRESSION: 1. 3.4 x 3.3 cm necrotic left supraclavicular lymph node. This is most likely postinfectious but is i ndeterminate. Follow-up to resolution is recommended. This is amenable to percutaneous ultrasound-jennifer ded biopsy if the diagnosis remains unclear. 2. Acute maxillary sinus disease. Electronically signed by: Frederick Hendricks MD (12/28/2020 7:01 AM) [facility]
--- NOTE | 2020-12-28 14:00 | CONS ---
DATE OF CONSULTATION: 12/28/2020 REFERRING PHYSICIAN: Dr. Garrison. REASON FOR CONSULTATION: Left neck abscess. HISTORY OF PRESENT ILLNESS: A 20-year-old female who presented to [facility] ED early this morning with complaints of left neck pain and swelling. The patient had been recently discharged from [facility] where she presented on 12/21 with similar symptoms. The patient was currently at [facility] for substance abuse and depression. CT revealed suppurative lymph nodes with multiloculated abscess versus malignancy. ENT was consulted. She was started on Unasyn on 12/22. She underwent ultrasound-guided FNA. Purulent material was aspirated. Culture is growing Strep pyogenes and many staph species. Pathology was negative for malignancy. ENT did not plan I and D and recommended oral antibiotic. The patient remained agitated. Discharge plan was ongoing with involvement and hopes of discharging the patient to [facility] . Unfortunately, the patient left the hospital AMA. She was given augmentin which she says she is currently taking. The patient complains of pain. Says swelling is somewhat less than what she had at [facility]. Denies any fevers, chills, nausea, vomiting, diarrhea or abdominal pain. Denies any symptoms. The patient is currently on Unasyn. ID consultation has been requested for antibiotic management. PAST MEDICAL HISTORY: Anxiety, bipolar disorder. SOCIAL HISTORY: Positive for smoking, ETOH dependence, drug dependence. ALLERGIES: No known drug allergies. REVIEW OF SYSTEMS: Negative except for above in HPI. CURRENT MEDICATIONS: Unasyn 1 dose, heparin, senna, quetiapine, acetaminophen, oxycodone, zolpidem, calcium carbonate, Zofran, Keppra. Was on Augmentin prior to admission as above. PHYSICAL EXAMINATION: VITAL SIGNS: Temperature 98.6, pulse 98, blood pressure 112/65, oxygen saturation 100% on room air. GENERAL: Alert, oriented x 3 female, lying in bed comfortably, in no acute distress. HEENT: Normocephalic, atraumatic. Anicteric. No thrush. NECK: Supple. No meningismus. Palpable left sternocleidomastoid area. Mild redness, tenderness present. No other lymph nodes palpable. LUNGS: Clear bilaterally. HEART: S1, S2. No gallops or murmurs. ABDOMEN: Soft, nontender, nondistended. EXTREMITIES: No edema, no cyanosis. DERMATOLOGIC: Warm, dry, no generalized rash except for above. NEUROLOGIC: Alert, oriented x 3, grossly nonfocal. PSYCHIATRIC: Calm and cooperative. LABORATORY DATA: 1. WBC 12.0, hemoglobin 13.3, hematocrit 38.7, platelets 427. 2. Sodium 137, potassium 4.0, chloride 102, bicarbonate 30, BUN 11, creatinine 0.9, albumin 2.9. 3. UA: None. Urine hCG negative. IMAGING: Soft tissue neck CT pending from here. IMPRESSION: 1. Left sternocleidomastoid abscess, status post fine needle aspiration on 12/22 at outside hospital. Purulent fluid was aspirated. Culture was growing Strep pyogenes and many staph species. Pathology was negative for malignancy. No I and D was planned by ENT. 2. Mild superimposed cellulitis on the left neck. 3. Leukocytosis. 4. Anxiety. 5. Bipolar disorder. 6. Smoker. 7. Drug dependence. 8. Hypothyroidism. RECOMMENDATIONS: 1. Restart Unasyn. 2. Discussed with Micro lab at [facility] today, only cultures positive was Strep pyogenes, staph did not grow on cultures. 3. Monitor labs and cultures. 4. Continue supportive care. 5. The patient may need transfer to facility with ENT coverage if symptoms worsen. Thank you Dr. Garrison for consulting Infectious Disease to participate in this patient's care. If you have any questions, do not hesitate to contact me. EARNESTINE/YURIY PAYAN: Josue TID: [id number] [facility] HOSPITALHilaria
[2020-12-28 15:00] VITALS: BP 99/58
[2020-12-28 15:53] LABS: BARBITURATES NEG (NEG); BENZODIAZEPINES NEG (NEG); CANNABINOIDS POS (NEG); COCAINE NEG (NEG); METHADONE NEG (NEG); OPIATES NEG (NEG); PHENCYCLIDINE NEG (NEG)
[2020-12-28 16:00] LABS: AMPHETAMINE/METHAMPHETAMINE POS (NEG)
[2020-12-28] MEDS: HEPARIN for SUB-Q USE 5,000 UNIT/ML VIAL. SQ SCH ×2 (17:52→20:12)
[2020-12-28 19:00] VITALS: BP 86/41
[2020-12-28] MEDS: oxyCODONE/APAP 5/325 1 TAB TABLET PO PRN (20:11)
[2020-12-28 23:00] VITALS: BP 112/61
[2020-12-29 03:00] VITALS: BP 108/75
[2020-12-29] MEDS: AMPICILLIN/SULBACTAM 3 GM in IV NORMAL SALINE 100ML 100 ML IV SCH ×3 (04:51→17:21)
[2020-12-29] MEDS: HEPARIN for SUB-Q USE 5,000 UNIT/ML VIAL. SQ SCH ×2 (04:52→14:00)
[2020-12-29 07:00] VITALS: BP 118/65
[2020-12-29] MEDS: SENNOSIDES/DOCUSATE 8.6/50MG TABLET. PO SCH (08:45)
[2020-12-29] MEDS: QUEtiapine 100 MG TABLET. PO SCH (08:45)
[2020-12-29] MEDS: levETIRAcetam 500 MG TABLET PO SCH (08:45)
[2020-12-29] MEDS: oxyCODONE/APAP 5/325 1 TAB TABLET PO PRN ×2 (08:45→15:05)
--- NOTE | 2020-12-29 10:02 | PDOC ---
Infectious Disease Note Subjective: Subjective Patient complains of pain Tearful Denies fever, nausea, vomiting, shortness of breath, diarrhea, abdominal pain, rash Otherwise as above Vital Signs: Vital Signs Vital Signs Date Time Temp Pulse Resp B/P (MAP) Pulse Ox O2 Delivery O2 Flow Rate FiO2 12/29/20 08:45 100 Room Air 12/29/20 07:00 97.7 60 16 118/65 (82) 97.7 Physical Exam: PHYSICAL EXAM GENERAL: Alert, oriented x 3 female, lying in bed comfortably, in no acute distress. HEENT: Normocephalic, atraumatic. Anicteric. No thrush. NECK: Supple. No meningismus. Palpable left sternocleidomastoid area. Mild overlying redness, tenderness present. LUNGS: Clear bilaterally. HEART: S1, S2. No gallops or murmurs. ABDOMEN: Soft, nontender, nondistended. EXTREMITIES: No edema, no cyanosis. DERMATOLOGIC: Warm, dry, no generalized rash except for above. NEUROLOGIC: Alert, oriented x 3, grossly nonfocal. PSYCHIATRIC: Calm and cooperative. Medications: Inpatient Meds: Medications reviewed. Objective: Assessment: 1. Left sternocleidomastoid abscess, status post fine needle aspiration on 12/22 at outside hospital. Purulent fluid was aspirated. Culture was growing Strep pyogenes and many staph species. Pathology was negative for malignancy. No I and D was planned by ENT. Ultrasound here reveals necrotic lymph node 2. Mild superimposed cellulitis on the left neck. 3. Leukocytosis. 4. Anxiety. 5. Bipolar disorder. 6. Smoker. 7. Drug dependence. 8. Hypothyroidism. Plan: Plan of Care Cont Unasyn. Discussed with Micro lab at [facility] [place] today, only cultures positive was Strep pyogenes, staph did not grow on cultures. Monitor labs and cultures. Continue supportive care. Awaiting transfer to facility with ENT coverage per team Behavioral therapy per primary team Discussed with grandparents at bedside Discussed with NEGRO CORONA MD Dec 29, 2020 10:02
[2020-12-29 11:00] VITALS: BP 93/56
--- NOTE | 2020-12-29 11:12 | NUR ---
[facility] following. Discussed with RN, pt from home, room air, regular diet. Pt needing transfer to another hospital for ENT needs. [facility] initiated transfer with , faxed requested clinicals, awaiting acceptance decision. [facility] consulted for meth use/abuse. [facility] will continue to follow. Addendum: 12/29/20 at 1614 by MEGHA SOLANO Pt accepted at pending a bed. Accepting physician Dr. Red. Packet placed on chart. RN notified.
[2020-12-29 11:28] LABS: ALBUMIN/GLOBULIN RATIO 0.6 (1.0-1.7); CALCIUM 9.1 mg/dL (8.5-10.1); CREATININE 0.9 mg/dL (0.6-1.0); GFR 78.3; POTASSIUM 4.1 mmol/L (3.5-5.1); TOTAL BILIRUBIN 0.1 mg/dL (0.2-1.0)
[2020-12-29 11:29] LABS: BASO % 0 % (0-3); EOS # 0.1 x10^3/uL (0.0-0.7); EOS % 1 % (0-3); HEMATOCRIT 40.9 % (36.0-47.0); HEMOGLOBIN 13.5 g/dL (12.0-15.5); LYMPH % 27 % (24-48); MEAN CORPUSCULAR HEMOGLOBIN 27 pg (25-35); MEAN CORPUSCULAR HGB CONC 33 g/dL (31-37); MEAN CORPUSCULAR VOLUME 83 fL (79-100); MONO # 0.6 x10^3/uL (0.0-1.1); MONO % 6 % (0-9); NEUT # 7.6 x10^3/uL (1.8-7.7); NEUT % 67 % (31-73); PLATELET COUNT 409 x10^3/uL (140-400); RED BLOOD COUNT 4.96 x10^6/uL (3.50-5.40); RED CELL DISTRIBUTION WIDTH 14.7 % (11.5-14.5); WHITE BLOOD COUNT 11.4 x10^3/uL (4.0-11.0)
[2020-12-29 15:00] VITALS: BP 90/46
--- NOTE | 2020-12-29 15:18 | PDOC ---
[employer] PROGRESS NOTE Date of Service DOS: DATE: 12/29/20 TIME: 15:15 Chief Complaint Chief Complaint Neck abscess, anxiety, bipolar, seizure disorder -Patient presenting with a 2-week history of worsening neck mass -Initially seen at outside hospital where mass was drained and patient treated with antibiotic -Left that hospital AMA has been taking p.o. Augmentin but neck mass worsening -In emergency room patient found to have leukocytosis. She was started on Unasyn. Will consult infectious disease -CT soft neck read pending. Will consult surgery to see if intervention is required -Home meds resumed as indicated -Pain control -DVT prophylaxis -Regular diet History of Present Illness History of Present Illness 20-year-old white female presented the emergency room overnight due to left- sided neck pain and a bump. Patient reports about 2 weeks ago she noticed she was developing a lump on the back of her neck. Initially she did not think much of it but when it continued to grow she went to an outside facility. This was about a week ago she was told at that time she was started on IV antibiotics (Unasyn) and the lump was aspirated with very purulent material. She was then recommended for surgery but she was made very nervous by this and left [facility]. She was given a prescription for oral antibiotics, I believe Augmentin, which she has been taking. Despite this lump continued to worsen and she presented back to the emergency room here. Emergency room labs remarkable for leukocytosis. CT neck read still pending. When I saw her she was overall pretty lethargic and in obvious amount of pain. She was denying headache, dizziness, vision changes, shortness breath, chest pain abdominal pain. 12/27/2020 No acute events overnight. Patient seen and examined bedside. Continues to have pain in the left side. IV antibiotics continued with Unasyn. ID and surgery have evaluated. Both have recommended to transfer to an ENT specialist with able to provide definitive management for her necrotic lymph node. Explai holly to the patient that she will need to transfer to another center. Patient agreed to proceed this time as compared to last time when she was at [facility], no and explained the procedures to her and she was surprised that someone was doing a needle aspiration of her neck mass. In addition to my E/M visit, advance care planning done with A total time of 20 minutes was spent from 12:00 to 1220 face to face in discussion with the patient and family regarding their goals of care, CODE STATUS. Vitals/I&O Vitals/I&O: Vital Signs Date Time Temp Pulse Resp B/P (MAP) Pulse Ox O2 Delivery O2 Flow Rate FiO2 12/29/20 15:05 100 Room Air 12/29/20 11:00 98.3 97 16 93/56 (68) 98.3 I & O 12/28/20 12/28/20 12/29/20 15:00 23:00 07:00 Intake Total 100 ml 500 ml 500 ml Balance 100 ml 500 ml 500 ml Physical Exam Physical Exam: GENERAL: Alert, oriented x 3 female, lying in bed comfortably, in no acute distress. HEENT: Normocephalic, atraumatic. Anicteric. No thrush. NECK: Supple. No meningismus. Palpable left sternocleidomastoid area. Mild overlying redness, tenderness present. LUNGS: Clear bilaterally. HEART: S1, S2. No gallops or murmurs. ABDOMEN: Soft, nontender, nondistended. EXTREMITIES: No edema, no cyanosis. DERMATOLOGIC: Warm, dry, no generalized rash except for above. NEUROLOGIC: Alert, oriented x 3, grossly nonfocal. PSYCHIATRIC: Calm and cooperative. General: Alert, Oriented X3, Cooperative Heart: Regular rate, Normal S1, Normal S2 Abdomen: Soft, No tenderness Extremities: No clubbing, No cyanosis Skin: No rashes, No breakdown Labs Labs: Laboratory Tests Test 12/29/20 10:52 White Blood Count 11.4 x10^3/uL (4.0-11.0) Red Blood Count 4.96 x10^6/uL (3.50-5.40) Hemoglobin 13.5 g/dL (12.0-15.5) Hematocrit 40.9 % (36.0-47.0) Mean Corpuscular Volume 83 fL (79-100) Mean Corpuscular Hemoglobin 27 pg (25-35) Mean Corpuscular Hemoglobin Concent 33 g/dL (31-37) Red Cell Distribution Width 14.7 % (11.5-14.5) Platelet Count 409 x10^3/uL (140-400) Neutrophils (%) (Auto) 67 % (31-73) Lymphocytes (%) (Auto) 27 % (24-48) Monocytes (%) (Auto) 6 % (0-9) Eosinophils (%) (Auto) 1 % (0-3) Basophils (%) (Auto) 0 % (0-3) Neutrophils # (Auto) 7.6 x10^3/uL (1.8-7.7) Lymphocytes # (Auto) 3.0 x10^3/uL (1.0-4.8) Monocytes # (Auto) 0.6 x10^3/uL (0.0-1.1) Eosinophils # (Auto) 0.1 x10^3/uL (0.0-0.7) Basophils # (Auto) 0.0 x10^3/uL (0.0-0.2) Sodium Level 140 mmol/L (136-145) Potassium Level 4.1 mmol/L (3.5-5.1) Chloride Level 102 mmol/L (98-107) Carbon Dioxide Level 32 mmol/L (21-32) Anion Gap 6 (6-14) Blood Urea Nitrogen 14 mg/dL (7-20) Creatinine 0.9 mg/dL (0.6-1.0) Estimated GFR (Cockcroft-Gault) 78.3 BUN/Creatinine Ratio 16 (6-20) Glucose Level 75 mg/dL (70-99) Calcium Level 9.1 mg/dL (8.5-10.1) Total Bilirubin 0.1 mg/dL (0.2-1.0) Aspartate Amino Transf (AST/SGOT) 18 U/L (15-37) Alanine Aminotransferase (ALT/SGPT) 40 U/L (14-59) Alkaline Phosphatase 94 U/L (46-116) C-Reactive Protein, Quantitative 4.2 mg/L (0-3.3) Total Protein 8.0 g/dL (6.4-8.2) Albumin 3.0 g/dL (3.4-5.0) Albumin/Globulin Ratio 0.6 (1.0-1.7) Assessment and Plan Assessmemt and Plan Problems Medical Problems: (1) Abscess Status: Acute (2) Neck pain Status: Acute Comment Review of Relevant I have reviewed the following items ale (where applicable) has been applied. Justifications for Admission Other Justification CONNOR LIU MD Dec 29, 2020 15:18
--- NOTE | 2020-12-29 18:37 | NUR ---
Discharge Note: DARON STALLINGS [address] Discharge instructions and discharge home medications reviewed with LUCITA Venegas at and a copy given. All questions have been answered and understanding verbalized. The following instructions and handouts were given: transfer of care Discontinued lines and drains: IV to stay in place per LUCITA Venegas at Patient discharged to via [facility] transport.
--- NOTE | 2020-12-29 19:50 | NUR ---
Patient left with transportation per wheelchair to [facility], called placed to [phone] to informed Patient intake, Joanna of Patient ETA.
[2020-12-29] MEDS ORDERED: LACTOBACILLUS RHAMNOSUS GG 1 CAPSULE. PO SCH (21:00)
== END 2020-12-29 19:50 | disposition short-term general hospital (02) ==
LOC: ER 02:14 → ED HOLD 05:37 → 5 SOUTH 07:39
PROVIDERS: ADMIT Internal Medicine; ATTEND Internal Medicine
DX: L02.11 Cutaneous abscess of neck (principal); Z20.822 Contact with and (suspected) exposure to COVID-19; M54.2 Cervicalgia; F31.9 Bipolar disorder, unspecified; F43.10 Post-traumatic stress disorder, unspecified; G40.909 Epilepsy, unspecified, not intractable, without status epilepticus; F15.90 Other stimulant use, unspecified, uncomplicated; D72.829 Elevated white blood cell count, unspecified; F41.9 Anxiety disorder, unspecified; E03.9 Hypothyroidism, unspecified; F12.90 Cannabis use, unspecified, uncomplicated; F17.200 Nicotine dependence, unspecified, uncomplicated; F10.20 Alcohol dependence, uncomplicated; Z53.29 Procedure and treatment not carried out because of patient's decision for other reasons
CPT/HCPCS: 36415; 70491; 80053; 80307; 81025; 85025; 86140; 87426; 96365; 96366; 96372; 99285; G0378; J0295; J1644; Q9967; G0379

== ENCOUNTER 2021-04-23 13:22 | Emergency (ER) | payer OTHER ==
[~2021-04-23] VITALS: Ht 175.3 cm; Wt 68.1 kg
[2021-04-23 13:45] VITALS: BP 132/89
[2021-04-23] MEDS ORDERED: LIDOCAINE 1%/EPI 1:100,000 20 ML VIAL. INJ ONE (13:45)
[2021-04-23] MEDS ORDERED: LIDOCAINE/EPI/TETRACAINE TOPICAL GEL 3 ML. TP ONE (13:45)
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
[2021-04-23 14:21] LABS: BILIRUBIN,URINE SMALL (NEG); CLARITY,URINE CLEAR; COLOR,URINE AMBER; NITRITE,URINE NEGATIVE (NEG); PROTEIN,URINE 100 mg/dL (NEG-TRACE); UROBILINOGEN,URINE 0.2 mg/dL (0.2 mg/dL)
[2021-04-23 14:25] LABS: BASO % 0 % (0-3); EOS % 0 % (0-3); HEMATOCRIT 43.2 % (36.0-47.0); HEMOGLOBIN 15.3 g/dL (12.0-15.5); LYMPH # 3.9 x10^3/uL (1.0-4.8); LYMPH % 29 % (24-48); MEAN CORPUSCULAR HEMOGLOBIN 30 pg (25-35); MEAN CORPUSCULAR HGB CONC 36 g/dL (31-37); MEAN CORPUSCULAR VOLUME 85 fL (79-100); MONO # 0.9 x10^3/uL (0.0-1.1); MONO % 7 % (0-9); NEUT # 8.7 x10^3/uL (1.8-7.7); NEUT % 64 % (31-73); PLATELET COUNT 331 x10^3/uL (140-400); RED BLOOD COUNT 5.07 x10^6/uL (3.50-5.40); RED CELL DISTRIBUTION WIDTH 12.6 % (11.5-14.5); WHITE BLOOD COUNT 13.6 x10^3/uL (4.0-11.0)
[2021-04-23 14:30] LABS: HYALINE CASTS, URINE MANY /HPF
[2021-04-23] MEDS ORDERED: IOHEXOL 300 MG/ML 100ML VIAL. IV ONE (14:30)
[2021-04-23 14:32] LABS: BACTERIA,URINE FEW /HPF (0-FEW); RBC,URINE 0 /HPF (0-2)
[2021-04-23 14:35] LABS: CALCIUM 8.8 mg/dL (8.5-10.1); CREATININE 0.9 mg/dL (0.6-1.0); GFR 78.3; POTASSIUM 3.8 mmol/L (3.5-5.1)
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
[2021-04-23] MEDS ORDERED: NITR100C62 PO (16:04)
[2021-04-23] MEDS ORDERED: IBUPROFEN 200 MG TABLET. PO ONE (16:15)
== END 2021-04-23 16:16 | disposition home or self-care (01) ==
LOC: ER 13:22
DX: S01.112A Laceration without foreign body of left eyelid and periocular area, initial encounter (principal); S00.83XA Contusion of other part of head, initial encounter; S30.0XXA Contusion of lower back and pelvis, initial encounter; F31.9 Bipolar disorder, unspecified; F43.10 Post-traumatic stress disorder, unspecified; F17.200 Nicotine dependence, unspecified, uncomplicated; Y04.0XXA Assault by unarmed brawl or fight, initial encounter; Y93.89 Activity, other specified; Y92.89 Other specified places as the place of occurrence of the external cause; Y99.8 Other external cause status
CPT/HCPCS: 12013; 36415; 70450; 70486; 72125; 74177; 80048; 81001; 81025; 85025; 87086; 99285; J3490; Q9967

== ENCOUNTER 2021-05-17 12:47 | Emergency (ER) | payer OTHER ==
[~2021-05-17 12:47] MED LIST changes: +NITR100C62 PO
== END 2021-05-17 13:52 | disposition left against medical advice (07) ==
LOC: ER 12:47
DX: M54.2 Cervicalgia (principal); Z53.21 Procedure and treatment not carried out due to patient leaving prior to being seen by health care provider